=== PATIENT | female | born 1975 | race Caucasian/White ===

== ENCOUNTER → 2021-11-12 02:48 | Outpatient (CLI) | payer OTHER, SELFPAY ==
[2021-11-12 18:24] LABS: SARS-CoV-2 RNA PCR Negative
== END ==
PROVIDERS: PCP Family Medicine; Visit Provider Surgery
DX: Z01.812 Encounter for preprocedural laboratory examination (principal); Z20.822 Contact with and (suspected) exposure to COVID-19
CPT/HCPCS: C9803; U0003; U0005

== ENCOUNTER 2021-11-12 08:35 | Outpatient (CLI) | payer OTHER, SELFPAY ==
--- NOTE | 2021-11-12 08:40 | ECG_ITS ---
Measurements Intervals [place] Rate: 66 P: 28 NM: 158 QRS: -8 QRSD: 94 T: 20 QT: 383 QTc: 403 Interpretive Statements SINUS RHYTHM INCOMPLETE RIGHT BUNDLE BRANCH BLOCK POOR R WAVE PROGRESSION, ANTERIOR LEADS BORDERLINE T WAVE ABNORMALITY- ANTERIOR LEADS BASELINE ARTIFACT- I, III, AVR, AVL, AVF BORDERLINE ECG Electronically Signed On 11-12-2021 9:30:12 COIL REPAIR TECHNICIAN by Joce Zavala D.O.
[2021-11-12 09:35] LABS: Hematocrit 40.7 % (37.0-47.0)
[2021-11-12 09:47] LABS: Alanine Aminotransferase 25 U/L (4-35); Albumin Level 4.8 g/dL (3.5-5.1); Alkaline Phosphatase 38 U/L (38-126); Amylase 72 U/L (30-110); Aspartate Amino Transferase 28 U/L (14-36); Bilirubin,Total 0.6 mg/dL (0.2-1.3); Lipase 65 U/L (23-300)
== END 2021-11-12 08:36 | disposition home or self-care (01) ==
LOC: ANHSURGERY 08:39
PROVIDERS: Anesthesiology; PCP Family Medicine; Visit Provider Surgery
DX: Z01.818 Encounter for other preprocedural examination (principal); K80.20 Calculus of gallbladder without cholecystitis without obstruction; I10 Essential (primary) hypertension; D64.9 Anemia, unspecified
CPT/HCPCS: 36415; 80076; 82150; 83690; 85014; 85018; 86850; 86900; 86901; 93005; C9803; U0003; U0005

== ENCOUNTER 2021-11-15 00:44 | Day surgery (SDC) | payer OTHER, SELFPAY ==
[2021-11-10 10:58] VITALS: BMI 29.2
--- NOTE | 2021-11-10 11:08 | PC.NURSE ---
Report to the Outpatient Waiting Room, entrance under the green pavilion located off [facility], at time 10:00 on date 11/15/21. OR Time: 12:00. - You will be asked a series of questions to screen for COVID 19 for your protection. - A mask is required within the hospital. - No visitors are allowed at this time. Preoperative COVID Testing Requirements: COVID TEST 1.28 AT 8:45 No COVID Test needed if: (proof is required; if not received patient will have Rapid Test prior to entry) - Patient has received COVID Vaccine at least 14 days prior to procedure date or - Patient has positive COVID test result within last 90 days of surgery date. COVID Test needed if above criteria is not met If not COVID vaccinated a COVID test must be conducted within 72 hours of surgery and patient is asked to isolate self from time of testing until procedure. You will go to the [facility] for your COVID testing. The [facility] site is located at the corner of [address] [facility]. You will only be called if COVID results are positive and your surgeon may reschedule your elective surgery date. Patients may have clear liquids (water, carbonated beverages, clear teas, apple juice) until 3 hours prior to surgery (9:00) with a maximum of 20 ounces. - No food from midnight until time of surgery Take the following medications with a SIP of water the morning of surgery: INHALER, GABAPENTIN, METOPROLOL, BCP Medications to discontinue per physician: VITAMINS/SUPPLEMENTS Date to take last dose: 11/10/21 Please no make-up, nail barbadian, hairspray, perfume, deodorant, or body powder the day of surgery. No jewelry (including any body piercings) or valuables the day of surgery, leave them at home. Please take a shower or bath the night before, or the morning of, surgery with an antibacterial soap. Wear comfortable, loose fitting clothing. HIBICLENS SHOWER - Jewelry must be removed prior to entering the operating room. Rings and piercings that are not removed may be cut off. - The hospital will not accept responsibility for valuables. - Please leave all valuables, including medications, at home the day of surgery. If you are going home after surgery, a licensed patrol driver must drive you home. - NO public transportation without another adult. - We recommend that an adult stay with you for 24 hours following discharge. - We also recommend that you do not drive, make important decision, drink alcoholic beverages, or take any drugs that were not prescribed by your health care provider for at least 24 hours after your discharge time. Follow any additional instructions given to you from your surgeon. Telephone instructions given to MARIA ALEJANDRA AQUINO and asked if any additional questions and then verbalized understanding. Patient advised to call surgeon office or pre surgery nurse liaison [phone] if any additional questions.
[2021-11-15] VITALS (9 sets, daily range): BP systolic 119–143; BP diastolic 72–80; PULSE 58–72; RESP 10–16; TEMP 36.1–36.6; O2SAT 96–100
[2021-11-15] MEDS: ACETAMINOPHEN 500 MG TABLET 1000 MG PO (09:38)
--- NOTE | 2021-11-15 09:56 | WPDHPUPDATE1 ---
History and Physical Update Update Date/Time: 11/15/21 09:56 History and Physical has been reviewed, including an updated exam of the patient. There are NO changes in the patient's condition. Risks, benefits, and alternatives have been discussed and questions answered. Patient agrees to proceed with procedure.
[2021-11-15] MEDS: LACTATED RINGERS 1,000 ML 30 ML IV CONT ×2 (10:02→11:08)
[2021-11-15] MEDS: KETOROLAC 15 MG/ML VIAL (*BKC) IV PUSH (10:03)
--- NOTE | 2021-11-15 10:04 | P.PNAN_ITS ---
Anes - Initial Pre Proc Eval Procedure: Operation Date: 11/15/21 11:30 Proposed Procedures p Laparoscopic Cholecystectomy, Possible Open - Arun Larson DO Date/Time: 11/15/21 10:04 Surgeon: Arun Larson DO Pre Op Diagnosis: Symptomatic Cholelithiasis Patient Data Age: 45 Gender: F Height: 1.63 m Weight: 79.3 kg Allergies Allergy/AdvReac Type Severity Reaction Status Date / Time Sulfa (Sulfonamide Allergy Intermediate Rash Verified 11/15/21 09:31 Antibiotics) Home Medications Medication Instructions Recorded Confirmed Type albuterol sulfate 90 mcg/actuation 1 puff INHALATION Q4H PRN 10/25/21 11/10/21 History aerosol inhaler ferrous gluconate 324 mg (37.5 mg 324 mg PO DAILY 10/25/21 11/15/21 History iron) tablet gabapentin 600 mg tablet 600 mg PO DAILY 10/25/21 11/15/21 History methylphenidate HCl 20 mg tablet 20 mg PO DAILY 10/25/21 11/15/21 History metoprolol succinate 100 mg 100 mg PO DAILY 10/25/21 11/15/21 History tablet,extended release 24 hr norethindrone (contraceptive) 0.35 0.35 mg PO DAILY 10/25/21 11/15/21 History mg tablet ondansetron HCl 4 mg tablet 4 mg PO Q8H 10/25/21 11/10/21 History Patient hx anesthesia problems: none Family hx anesthesia problems: none Results Review: All pre-operative results and documents have been reviewed as part of the pre-operative evaluation. [facility] Past Medical History Medical History Hypertension Narcolepsy INDRA (obstructive sleep apnea) Surgical History Surgical History H/O exploratory laparotomy History of endometrial ablation History of tubal ligation Hx of rotator cuff surgery Family History Family History Father Hypertension Mother Hypertension Other Breast cancer Skin cancer Grandparent Diabetes mellitus Social History Social History Smoking packs per day: 1 Smoking cigarettes per day: 20.0 Years smoked: 15 Smoking pack-years: 15.00 Smoking status: Former smoker Tobacco type: cigarettes Smoking end date: 10/16/11 Alcohol intake: current Alcohol use details: 4/MONTH Substance use: never Substance use type: does not use Living arrangements: with family Spiritual care concerns: No Anes - Eval Final PreProcedure Day of Procedure 11/15/21 10:04 Patient weight: obese Heart: regular rate and rhythm Lungs: clear to auscultation Airway: Mallampati scale class II Neurological: alert and oriented Last oral intake: >/= 8 hours ASA classification: III Emergent: no Anesthetic plan: proceed Anesthesia type and monitoring: general ETT and standard monitoring Results Review: All pre-operative results and documents have been reviewed as part of the pre-operative evaluation. Informed Consent: The patient's anesthetic plan and its attendant risks and benefits were discussed with the patient/family/POA. Questions were solicited and answers provided to the satisfaction of the patient/family/POA.
[2021-11-15] MEDS: ceFAZolin 2 GM/D5W 50 ML 2 GM/50 ML BAG IVPB (10:11)
[2021-11-15] MEDS: BUPIVACAINE/EPINEPHRINE 0.5% 30 ML VIAL INFILTRATE (10:30)
--- NOTE | 2021-11-15 11:01 | W.PM.PROC2 ---
Procedure Note - Detailed Date of Procedure 11/15/21 Pre-op Diagnosis Symptomatic Cholelithiasis Post-op Diagnosis same Procedure Performed Laparoscopic Cholecystectomy Surgeon Arun Larson, DO Anesthesia general and local (0.5% bupivacaine) Indications This is a 45-year-old woman who presented with intermittent upper abdominal pains for the past month. She also has a history of chronic diarrhea. She was seen by her PCP and an ultrasound was obtained at an outside facility. This was reviewed and showed evidence of cholelithiasis. Discussions were made with the patient about treatment options and decision was made to proceed with laparoscopic cholecystectomy, possible open Findings Laparoscopic cholecystectomy was performed. The patient's gallbladder did have some chronic thickening and there were stones within the gallbladder. The cystic duct appeared normal in size. No other abnormalities were noted. The gallbladder was removed and sent to lab for pathology. Description of Procedure Procedure as well as risks, benefits, and alternatives were discussed with patient. Written consent was obtained and placed in chart prior to procedure. The patient was brought back to surgical suite. Patient was placed in supine position on operating table. Time-out was done to confirm patient and procedure. Patient was then intubated by the anesthesia department. Abdomen was prepped and draped in sterile fashion using chlorhexidine prep. 0.5% bupivacaine with epinephrine was infiltrated at each site of incision. A 5 millimeter incision was made near the umbilicus, and a 5 millimeter Optiview trocar was advanced through the abdominal layers under direct visualization. Once inside the abdominal cavity, carbon dioxide was insufflated to create a pneumoperitoneum. The camera was inserted and the abdomen was inspected. No immediate abnormalities were identified. The patient was placed in reverse Trendelenburg position and rotated slightly to the left. An 11 millimeter incision was made in the subxiphoid region, and an 11 millimeter trocar was inserted under direct visualization. Two 5 millimeter incisions were made in the right upper quadrant, and two 5 millimeter trocars were inserted under direct visualization. The gallbladder was identified and grasped at the fundus and retracted superiorly. It was then grasped at the infundibulum retracted laterally. Careful dissection around the neck of the gallbladder was performed using blunt dissection with a [place] grasper and hook electrocautery. The cystic duct was identified, and a window was created behind it. The cystic artery was also identified and a window was created behind it. The critical view of safety was identified, visualizing the cystic duct running directly into the neck of the gallbladder, and the cystic artery running directly into the wall of the gallbladder. A 5 millimeter clip skid man was then used to place 2 clips proximally and 1 clip distally on both the cystic duct and cystic artery. They were then both transected using endoscopic scissors. Once safely away from the cammie hepatitis, the gallbladder was dissected free from the liver bed using hook electrocautery. Hemostasis was achieved along the way. The gallbladder was removed completely and then removed through the subxiphoid port. The liver bed was then inspected. Hemostasis appeared adequate, and our clips appeared secure. The area was gently irrigated with sterile saline. No other abnormalities were seen. The patient was flattened out in bed, and 1 final inspection was made around the abdominal cavity. The subxiphoid port was removed, and a Zay Yonas cone was used to approximate the fascia with an 0-Vicryl simple interrupted suture. The remaining ports were then removed under direct visualization, the camera was removed, and the pneumoperitoneum was released. The skin of the incisions was approximated using 4-0 Monocryl subc
[2021-11-15] MEDS: fentaNYL CITRATE INJ (*CRX) 100 MCG/2 ML VIAL 25 MCG IV PUSH (11:50)
--- NOTE | 2021-11-15 11:54 | SUR.PHASEI ---
Simple mask removed at 1141.
[2021-11-15] MEDS: oxyCODONE HCL (*CRX) 5 MG TAB IR PO (13:00)
== END 2021-11-15 13:10 | disposition home or self-care (01) ==
PROVIDERS: PCP Family Medicine; Visit Provider Surgery
PROC: 0FT44ZZ Resection of Gallbladder, Percutaneous Endoscopic Approach (ICD-10-PCS; CPT 47562; principal; 2021-11-15 11:30)
DX: K80.12 Calculus of gallbladder with acute and chronic cholecystitis without obstruction (principal); I10 Essential (primary) hypertension; Z79.51 Long term (current) use of inhaled steroids; G47.33 Obstructive sleep apnea (adult) (pediatric); G47.419 Narcolepsy without cataplexy; Z87.891 Personal history of nicotine dependence; E66.9 Obesity, unspecified; Z68.30 Body mass index [BMI] 30.0-30.9, adult
CPT/HCPCS: 47562; 88304; A9270; J0690; J1100; J1885; J2250; J2405; J2704; J2710; J3010; J7030; J7120

== ENCOUNTER 2022-03-23 01:02 | Day surgery (SDC) | payer OTHER, SELFPAY ==
[2022-03-10 14:32] VITALS: BMI 29.5
[2022-03-23 08:45] VITALS: BP 129/86; PULSE 61; RESP 18; TEMP 36.4; O2SAT 99; BMI 27.8
[2022-03-23] MEDS: LACTATED RINGERS 1,000 ML 150 ML IV CONT (09:21)
--- NOTE | 2022-03-23 09:32 | WPDANESEPPF ---
Anes - Initial Pre Proc Eval Procedure: Operation Date: 03/23/22 10:00 Proposed Procedures p Esophagogastroduodenoscopy & Colonoscopy - Mahendra Amos MD Date/Time: 03/23/22 09:32 Surgeon: Mahendra Amos MD Pre Op Diagnosis: diarrhea, nausea, RUQ Pain Patient Data Age: 46 Gender: F Height: 1.63 m Weight: 73.5 kg Last Vital Signs Temp 97.5 F L 03/23/22 08:45 Pulse 61 03/23/22 08:45 Resp 18 03/23/22 08:45 BP 129/86 03/23/22 08:45 Pulse Ox 99 03/23/22 08:45 O2 Del Method Room Air 03/23/22 08:45 Allergies Allergy/AdvReac Type Severity Reaction Status Date / Time Sulfa (Sulfonamide Allergy Intermediate Rash Verified 03/23/22 08:58 Antibiotics) Home Medications Medication Instructions Recorded Confirmed Type albuterol sulfate 90 mcg/actuation 1 puff inhalation Q4H PRN 10/25/21 03/23/22 History aerosol inhaler (ProAir HFA) Bronchospasm ferrous gluconate 324 mg (37.5 mg 324 mg PO DAILY 10/25/21 03/23/22 History iron) tablet gabapentin 600 mg tablet 600 mg PO TID 10/25/21 03/23/22 History methylphenidate HCl 20 mg tablet 20 mg PO BID 10/25/21 03/23/22 History (Ritalin) metoprolol succinate 100 mg 100 mg PO DAILY 10/25/21 03/23/22 History tablet,extended release 24 hr norethindrone (contraceptive) 0.35 0.35 mg PO DAILY 10/25/21 03/23/22 History mg tablet colestipol 1 gram tablet 1 g PO DAILY PRN diarrhea 1 month 03/08/22 03/23/22 Rx #30 tabs hyoscyamine sulfate 0.125 mg tablet 0.125 mg PO QID PRN dyspepsia 1 03/08/22 03/23/22 Rx month #120 tabs omeprazole 20 mg capsule,delayed 20 mg PO DAILY 1 month #30 caps 03/08/22 03/23/22 Rx release sodium sul 1.479 gram-[facility] See Rx Instructions PO PER PKG DIR 03/09/22 03/23/22 Rx 0.188 gram-magnes sul 0.225 gram #24 tabs tablet (Sutab) Patient hx anesthesia problems: none Family hx anesthesia problems: none Results Review: All pre-operative results and documents have been reviewed as part of the pre-operative evaluation. [facility] Past Medical History Medical History (Updated 03/08/22 @ 14:04 by JEN Parikh) Diarrhea Heartburn Hypertension Narcolepsy Nausea INDRA (obstructive sleep apnea) RUQ pain Surgical History Surgical History H/O exploratory laparotomy History of endometrial ablation History of tubal ligation Hx laparoscopic cholecystectomy 11/15/21 Hx of rotator cuff surgery Family History Family History Father Hypertension Mother Hypertension Other Breast cancer Skin cancer Grandparent Diabetes mellitus Social History Social History Smoking packs per day: 1 Smoking cigarettes per day: 20.0 Years smoked: 15 Smoking pack-years: 15.00 Smoking status: Never smoker Tobacco type: cigarettes Smoking end date: 10/16/11 Alcohol intake: current Alcohol use details: 4/MONTH Substance use: never Substance use type: does not use Living arrangements: alone Spiritual care concerns: No Anes - Eval Final PreProcedure Day of Procedure 03/23/22 09:32 Patient weight: normal Heart: regular rate and rhythm Lungs: clear to auscultation Airway: Mallampati scale class II Neurological: alert and oriented Last oral intake: >/= 8 hours ASA classification: II Emergent: no Anesthetic plan: proceed Anesthesia type and monitoring: general GIVS and standard monitoring Results Review: All pre-operative results and documents have been reviewed as part of the pre-operative evaluation. Informed Consent: The patient's anesthetic plan and its attendant risks and benefits were discussed with the patient/family/POA. Questions were solicited and answers provided to the satisfaction of the patient/family/POA.
--- NOTE | 2022-03-23 09:33 | WPDHPUPDATE1 ---
History and Physical Update Update Date/Time: 03/23/22 09:33 History and Physical has been reviewed, including an updated exam of the patient. There are NO changes in the patient's condition. Risks, benefits, and alternatives have been discussed and questions answered. Patient agrees to proceed with procedure.
--- NOTE | 2022-03-23 09:54 | SUR.OPER ---
EGD ENDED AT 947, COLONOSCOPY BEGAN AT 951.
[2022-03-23 10:05] VITALS: BP 110/72; PULSE 63; RESP 15; O2SAT 99
[2022-03-23 10:15] VITALS: BP 113/73; PULSE 60; RESP 15; O2SAT 99
[2022-03-23 10:25] VITALS: BP 120/77; PULSE 60; RESP 20; O2SAT 95
== END 2022-03-23 10:41 | disposition home or self-care (01) ==
PROVIDERS: PCP Family Medicine; Visit Provider Internal Medicine Gastroenterology
PROC: 0DJ08ZZ Inspection of Upper Intestinal Tract, Via Natural or Artificial Opening Endoscopic (ICD-10-PCS; CPT 43235; principal; 2022-03-23 10:00)
DX: Z12.11 Encounter for screening for malignant neoplasm of colon (principal); K57.30 Diverticulosis of large intestine without perforation or abscess without bleeding; K64.8 Other hemorrhoids; K64.4 Residual hemorrhoidal skin tags; K29.50 Unspecified chronic gastritis without bleeding; B96.81 Helicobacter pylori [H. pylori] as the cause of diseases classified elsewhere; R19.7 Diarrhea, unspecified; I10 Essential (primary) hypertension; G47.419 Narcolepsy without cataplexy; G47.33 Obstructive sleep apnea (adult) (pediatric); Z87.891 Personal history of nicotine dependence; Z79.51 Long term (current) use of inhaled steroids
CPT/HCPCS: 45380; 43239; 88305; 88342; J2704; J7120

== ENCOUNTER 2022-07-05 07:16 | Outpatient (CLI) | payer OTHER, SELFPAY ==
--- NOTE | ~2022-07-05 | XR_ITS ---
EXAMINATION: XR small bowel follow through DATE: 07/05/2022 10:30 INDICATION: Diarrhea. Mid to right-sided abdominal pain. TECHNIQUE: Oral contrast was administered, and a time course of radiographs of the abdomen was obtain ed. Fluoroscopy of the small bowel was performed. Fluoroscopy exposure time was 0.6 minutes. The tota l number of images was 21. COMPARISON: None. FINDINGS: There are no dilated loops of bowel. There is no abnormal mass or stricture. The terminal ileum is no rmal. Transit time from the stomach to proximal colon was approximately 2 hours. Surgical clips in th e right upper quadrant are likely from cholecystectomy. IMPRESSION: 1. Normal small bowel series. Reviewed, dictated and finalized at location A.
== END 2022-07-05 07:17 | disposition home or self-care (01) ==
LOC: ANHIMG 07:19
PROVIDERS: PCP Family Medicine; Visit Provider Nurse Practitioner
DX: R19.7 Diarrhea, unspecified (principal); Z90.49 Acquired absence of other specified parts of digestive tract
CPT/HCPCS: 74250

== ENCOUNTER 2022-07-28 08:07 | Outpatient (CLI) | payer OTHER, SELFPAY ==
--- NOTE | ~2022-07-28 | US_ITS ---
US abdomen limited INDICATION: Right upper quadrant pain. Status post cholecystectomy. PROCEDURE: Realtime right upper abdominal ultrasound. COMPARISON: No prior studies for comparison. FINDINGS: The pancreas is normal without focal mass or pancreatic ductal dilation. Liver echotexture is normal without focal mass or intrahepatic biliary dilatation. There is normal directional flow i n the portal vein. Gallbladder is surgically absent. Common bile duct measures 6 mm. IMPRESSION: 1: Unremarkable limited abdominal ultrasound. Reviewed, dictated and finalized at location A.
== END 2022-07-28 08:08 | disposition home or self-care (01) ==
PROVIDERS: PCP Family Medicine; Visit Provider Nurse Practitioner Family
DX: R10.11 Right upper quadrant pain (principal)
CPT/HCPCS: 76705

== ENCOUNTER 2023-06-14 09:28 | Outpatient (CLI) | payer OTHER, SELFPAY ==
--- NOTE | 2023-06-14 11:00 | NEURO_ITS ---
Impression: # Complains of intermittent widespread numbness. Non-diabetic with negative family history of muscle disease or nerve disease. # Right ulnar neuropathy. # No Carpal Tunnel Syndrome. # No generalized neuropathy. # Normal Needle/EMG exam. Nerve Conduction Studies Anti Sensory Summary Table Stim Site NR Peak (ms) P-T Amp (?V) Site1 Site2 Delta-P (ms) Dist (cm) Dennis (m/s) Left Median Anti Sensory (2-3nd Digit) Wrist 3.1 88.2 Wrist 2-3nd Digit 3.1 14.0 45 Wrist 3.1 80.8 Wrist 2-3nd Digit 3.1 14.0 45 Right Median Anti Sensory (2-3nd Digit) Wrist 3.1 91.8 Wrist 2-3nd Digit 3.1 14.0 45 Wrist 3.1 69.5 Wrist 2-3nd Digit 3.1 14.0 45 Left Radial Anti Sensory (Base 1st Digit) Wrist 2.0 33.2 Wrist Base 1st Digit 2.0 0.0 Right Radial Anti Sensory (Base 1st Digit) Wrist 2.1 33.6 Wrist Base 1st Digit 2.1 0.0 Left Sup Fibular Anti Sensory (Ant Lat Mall) 14 cm 3.3 7.7 14 cm Ant Lat Mall 3.3 16.0 48 Right Sup Fibular Anti Sensory (Ant Lat Mall) 14 cm 3.5 26.1 14 cm Ant Lat Mall 3.5 16.0 46 Left Sural Anti Sensory (Lat Mall) Calf 3.7 13.4 Calf Lat Mall 3.7 16.0 43 Right Sural Anti Sensory (Lat Mall) Calf 3.6 10.5 Calf Lat Mall 3.6 16.0 44 Left Ulnar Anti Sensory (5th Digit) Wrist 2.9 74.1 Wrist 5th Digit 2.9 14.0 48 Right Ulnar Anti Sensory (5th Digit) Wrist 2.4 74.0 Wrist 5th Digit 2.4 14.0 58 Motor Summary Table Stim Site NR Onset (ms) O-P Amp (mV) Site1 Site2 Delta-0 (ms) Dist (cm) Dennis (m/s) Left Median Motor (Abd Poll Brev) Wrist 3.1 4.6 Elbow Wrist 4.3 26.0 60 Elbow 7.4 2.9 Right Median Motor (Abd Poll Brev) Wrist 3.0 8.1 Elbow Wrist 4.5 27.0 60 Elbow 7.5 5.9 Left Peroneal Motor (Vastus Med) Ankle 4.1 3.6 Popit Ankle 7.9 38.0 48 Popit 12.0 2.8 Right Peroneal Motor (Vastus Med) Ankle 3.8 5.8 Popit Ankle 6.9 36.0 52 Popit 10.7 5.1 Left Tibial Motor (Abd Holloway Brev) Ankle 3.9 9.1 Knee Ankle 8.1 41.0 51 Knee 12.0 7.1 Right Tibial Motor (Abd Holloway Brev) Ankle 4.0 10.7 Knee Ankle 8.4 40.0 48 Knee 12.4 3.5 Left Ulnar Motor (Abd Dig Minimi) Wrist 2.6 5.4 A Elbow Wrist 4.7 28.0 60 A Elbow 7.3 5.8 Right Ulnar Motor (Abd Dig Minimi) Wrist 2.3 7.7 A Elbow Wrist 5.8 28.0 48 A Elbow 8.1 8.2 B Elbow Wrist 3.7 18.0 49 B Elbow 6.0 5.1 F Wave Studies NR F-Lat (ms) L-R F-Lat (ms) Left Median (Mrkrs) (Abd Poll Brev) 27.19 0.45 Right Median (Mrkrs) (Abd Poll Brev) 27.64 0.45 Left Peroneal (Mrkrs) (EDB) 48.54 0.58 Right Peroneal (Mrkrs) (EDB) 49.12 0.58 Left Tibial (Mrkrs) (Abd Hallucis) 47.34 1.09 Right Tibial (Mrkrs) (Abd Hallucis) 48.44 1.09 Left Ulnar (Mrkrs) (Abd Dig Min) 26.76 0.00 Right Ulnar (Mrkrs) (Abd Dig Min) 26.76 0.00 EMG Side Muscle Nerve Root Ins Act Fibs Amp Dur Recrt Comment Right 1stDorInt Ulnar C8-T1 Nml Nml Nml Nml Nml Right Ext Indicis Radial (Post Int) C7-8 Nml Nml Nml Nml Nml Right Ext Digitorum Radial (Post Int) C7-8 Nml Nml Nml Nml Nml Right BrachioRad Radial C5-6 Nml Nml Nml Nml Nml Right PronatorTeres Median C6-7 Nml Nml Nml Nml Nml Right Abd Poll Brev Median C8-T1 Nml Nml Nml Nml Nml
== END 2023-06-14 09:29 | disposition home or self-care (01) ==
LOC: ANHNEURO 09:30
PROVIDERS: PCP Family Medicine; Visit Provider Family Medicine
DX: M54.6 Pain in thoracic spine (principal); M89.8X1 Other specified disorders of bone, shoulder; M25.511 Pain in right shoulder; M19.049 Primary osteoarthritis, unspecified hand; D35.2 Benign neoplasm of pituitary gland; G62.9 Polyneuropathy, unspecified; R53.83 Other fatigue; G56.21 Lesion of ulnar nerve, right upper limb
CPT/HCPCS: 95886; 95913